=== PATIENT | female | born 1965 | race Caucasian/White ===

== ENCOUNTER 2025-02-13 06:22 | Emergency (ER) | payer BC ==
[2025-02-13 06:33] LABS: APPEARANCE,URINE CLOUDY; BILIRUBIN,URINE SMALL (NEGATIVE); COLOR,URINE RED; GLUCOSE,URINE NEGATIVE (NEGATIVE); KETONES,URINE TRACE mg/dL (NEGATIVE); LEUKOCYTE ESTERASE,URINE SMALL (NEGATIVE); NITRITE,URINE NEGATIVE (NEGATIVE); OCCULT BLOOD,URINE LARGE (NEGATIVE); PROTEIN,URINE >=300 mg/dL (NEGATIVE)
[2025-02-13 06:48] LABS: BASOPHILS ABSOLUTE AUTO 0.05 K/uL (0.00-0.20); BASOPHILS PERCENT AUTO 0.4 % (0.0-2.0); EOSINOPHILS ABSOLUTE AUTO 0.16 K/uL (0.00-0.50); EOSINOPHILS PERCENT AUTO 1.4 % (0.0-5.0); HEMATOCRIT 39.6 % (34.0-46.0); HEMOGLOBIN 13.3 g/dL (11.7-15.5); IMMATURE GRAN ABSOLUTE AUTO 0.03 10^3/uL (0.00-0.04); IMMATURE GRAN PERCENT AUTO 0.3 % (0.0-0.4); LYMPHOCYTES ABSOLUTE AUTO 2.29 K/uL (0.50-3.50); LYMPHOCYTES PERCENT AUTO 19.6 % (10.0-50.0); MEAN CORPUSCULAR HEMOGLOBIN 31.3 pg (28.2-33.3); MEAN CORPUSCULAR HGB CONC 33.6 g/dL (31.7-36.0); MEAN CORPUSCULAR VOLUME 93.2 fL (84.0-98.0); MONOCYTES ABSOLUTE AUTO 0.77 K/uL (0.00-1.00); MONOCYTES PERCENT AUTO 6.6 % (2.0-14.0); NEUTROPHILS ABSOLUTE AUTO 8.38 K/uL (1.40-7.00); NEUTROPHILS PERCENT AUTO 71.7 % (45.0-80.0); PLATELET COUNT,PLT 269 K/uL (150-350); RED BLOOD CELL COUNT 4.25 M/uL (3.77-5.09); RED CELL DISTRIBUTION WIDTH 13.2 % (11.2-14.1); WHITE BLOOD CELL COUNT,WBC 11.7 K/uL (4.0-10.2)
[2025-02-13 06:51] LABS: BACTERIA,URINE MODERATE /HPF (NONE TO FEW); EPITHELIAL CELLS,URINE FEW /LPF; RBC,URINE >100 /HPF; WBC,URINE >100 /HPF
[2025-02-13] MEDS: cefTRIAXone 1 GM Vial IM ONE (07:13)
[2025-02-13] MEDS: Lidocaine 1% 5 ML VIAL INJECT ONE (07:13)
[2025-02-13] MEDS: Take Home: Phenazopyridine 95 MG Tab, 4 Tab Pack PO ONE (07:32)
[2025-02-13] MEDS: Ondansetron 4 MG Tab.DIS PO ONE (07:32)
[2025-02-13] MEDS: Phenazopyridine 95 MG Tab PO ONE (07:32)
[2025-02-13] MEDS: Take Home: Nitrofurantoin Monohydrate/Macrocrystalline 100 MG, 6 Cap Pack PO ONE (07:32)
[2025-02-13 07:58] LABS: CALCIUM 9.3 mg/dL (8.5-10.1); CREATININE 0.89 mg/dL (0.51-1.17); EST CRCL DRUG DOSING (CG) 55.61 mL/min; POTASSIUM,K 3.8 mmol/L (3.5-5.1)
[2025-02-13] MEDS ORDERED: Phenazopyridine 95 MG Tab PO SCH (08:30)
== END 2025-02-13 07:45 | disposition home or self-care (01) ==
LOC: LL.ED 06:22
DX: N39.0 Urinary tract infection, site not specified (principal); I10 Essential (primary) hypertension; Z79.899 Other long term (current) drug therapy
CPT/HCPCS: 36415; 80048; 81001; 85025; 87086; 87186; 96372; 99283; 99284; A9270-GY; J0696; J2003